=== PATIENT | female | born 1990 | race African-American/Black ===

== ENCOUNTER 2019-04-02 18:47 | Emergency (ER) | payer MEDICAID | END 2019-04-02 19:00 | disposition left against medical advice (07) | LOC: ER 18:47 | DX: Z53.21 Procedure and treatment not carried out due to patient leaving prior to being seen by health care provider (principal) ==

== ENCOUNTER 2023-05-16 00:03 | Emergency (ER) | payer MEDICAID ==
[~2023-05-16] VITALS: Ht 165.1 cm; Wt 62.0 kg
[2023-05-16 00:45] VITALS: BP 112/76; PULSE 87; RESP 17; TEMP 98.1; O2SAT 100
[2023-05-16] MEDS ORDERED: ACETAMINOPHEN 325MG TABLET PO ONE (01:00)
[2023-05-16] MEDS ORDERED: ACETAMINOPHEN 325MG TABLET PO NR (03:30)
[2023-05-16] MEDS ORDERED: ACET-2708 MT (04:58)
== END 2023-05-16 06:02 | disposition home or self-care (01) ==
LOC: ER 00:03
DX: S00.93XA Contusion of unspecified part of head, initial encounter (principal); W22.8XXA Striking against or struck by other objects, initial encounter; Y93.89 Activity, other specified; Y92.89 Other specified places as the place of occurrence of the external cause; Y99.8 Other external cause status
CPT/HCPCS: 81025; 99284

== ENCOUNTER 2023-05-16 23:41 | Emergency (ER) | payer MEDICAID ==
[~2023-05-16] VITALS: Ht 165.1 cm; Wt 61.0 kg
[~2023-05-16 23:41] MED LIST: ACET-2708 MT
[2023-05-17 00:06] VITALS: O2SAT 95
[2023-05-17 00:31] LABS: BASOPHILS % 0.5 % (0.0-2.0); EOSINOPHILS % 6.4 % (0.0-5.0); HEMATOCRIT. 35.4 % (36.0-48.0); HEMOGLOBIN. 11.3 g/dL (12.0-16.0); LYMPHOCYTES % 27.6 % (20.0-50.0); MEAN CORPUSCULAR HEMOGLOBIN 29.4 pg (28.0-32.0); MEAN CORPUSCULAR HGB CONC 31.8 g/dL (31.0-37.0); MEAN CORPUSCULAR VOLUME 92.5 fL (81.0-99.0); MEAN PLATELET VOLUME 9.8 fl (7.4-10.4); MONOCYTES % 6.6 % (2.0-8.0); NEUTROPHILS % 58.9 % (40.0-76.0); PLATELET 227 x1000/uL (130-400); RED BLOOD CELL COUNT 3.83 mill/uL (4.2-5.4); RED CELL DISTRIBUTION WIDTH 12.5 % (11.6-14.6); WHITE BLOOD COUNT 6.6 x1000/uL (4.5-11.0)
[2023-05-17 00:40] LABS: INR 0.9; PROTHROMBIN TIME 10.6 sec (9.6-11.0)
[2023-05-17 00:46] LABS: ALANINE AMINOTRANSFERASE 9 IU/L (10-49); ALBUMIN 4.9 g/dL (3.2-4.8); ASPARTATE AMINOTRANSFERASE 19 IU/L (<34); BILIRUBIN TOTAL 0.4 mg/dL (0.1-1.0); CARBON DIOXIDE 28 mEq/L (21-32); CHLORIDE 107 mEq/L (98-107); CREATININE 0.8 mg/dL (0.6-1.0); GLUCOSE 94 mg/dL (70-105); POTASSIUM 3.4 mEq/L (3.5-5.1); PROTEIN TOTAL 7.6 g/dL (6.0-8.3); SODIUM 140 mEq/L (136-145); UREA NITROGEN BLOOD 8 mg/dL (9-23)
[2023-05-17 00:52] LABS: HCG SCREEN NEGATIVE
[2023-05-17 01:08] LABS: TROPONIN I HIGH SENSITIVITY < 4 ng/L (3.0-34)
[2023-05-17 02:07] VITALS: TEMP 98.7
[2023-05-17 02:23] LABS: TROPONIN I HIGH SENSITIVITY < 4 ng/L (3.0-34)
[2023-05-17] MEDS: CEFTRIAXONE 1GM/50ML 50 ML IV ONE (02:26)
[2023-05-17 02:46] LABS: CLARITY URINE CLEAR (CLEAR); COLOR URINE YELLOW (YELLOW); GLUCOSE URINE NEGATIVE (NEGATIVE); KETONES URINE NEGATIVE (NEGATIVE); LEUKOCYTE ESTERASE URINE NEGATIVE (NEGATIVE); NITRITE URINE NEGATIVE (NEGATIVE); OCCULT BLOOD URINE NEGATIVE (NEGATIVE); PROTEIN URINE NEGATIVE (NEGATIVE); SPECIFIC GRAVITY URINE 1.005 (1.005-1.030); UROBILINOGEN URINE 0.2 E.U./dL (0.2-1.0)
[2023-05-17 04:46] VITALS: BP 113/79; PULSE 85; RESP 14
== END 2023-05-17 06:00 | disposition home or self-care (01) ==
LOC: ER 23:41
DX: E86.0 Dehydration (principal); Z98.890 Other specified postprocedural states
CPT/HCPCS: 87040 ×2; 36415 ×2; 71045; 93005; 99291; 80053; 81003; 84703; 83605; 83690; 85025; 85610; 87086; 84484; 84145; 96365; 96366; J0696; Z7610